=== PATIENT | male | born 1980 | race Two or more races ===

== ENCOUNTER 2020-01-29 09:44 | Emergency (ER) | payer OTHER ==
[~2020-01-29] VITALS: Ht 162.6 cm; Wt 127.0 kg
[2020-01-29 10:48] LABS: Basophils # (auto) 0.1 10 ^3/uL (0-0.2); Basophils % (auto) 0.8 % (0.0-2.0); Eosinophils # (auto) 0.1 10 ^3/uL (0-0.8); Eosinophils % (auto) 0.7 % (0.0-7.0); Hematocrit 48.7 % (41.0-53.0); Hemoglobin 16.3 g/dL (13.5-17.5); Lymphocytes # (auto) 1.7 10 ^3/uL (0.4-5.4); Lymphocytes % (auto) 20.1 % (10.0-50.0); Mean Corpuscular Hemoglobin 29.4 pg (28.0-32.0); Mean Corpuscular Hgb Conc. 33.5 g/dL (32.0-36.0); Mean Corpuscular Volume 87.9 fL (80.0-100.0); Monocytes # (auto) 0.7 10 ^3/uL (0-1.3); Monocytes % (auto) 8.5 % (0.0-12.0); Neutrophils % (auto) 69.9 % (37.0-80.0); Nucleated Red Blood Cells % 0.1 %; Platelet Count (auto) 314 10^3/uL (140-450); Red Blood Cells 5.54 10^6/uL (4.5-5.90); Red Cell Distribution Width 14.1 % (11.8-14.3); White Blood Cell 8.6 10^3/uL (4.4-10.8)
[2020-01-29 11:09] LABS: Potassium 3.8 mmol/L (3.5-5.1)
[2020-01-29 11:15] LABS: Albumin 3.9 g/dL (3.4-5.0); BUN/Creatinine Ratio 11.8; Bilirubin, Total 1.2 mg/dL (0.2-1.0); Total Protein 7.9 g/dL (6.4-8.2)
[2020-01-29 11:58] VITALS: BP 148/72
== END 2020-01-29 12:03 | disposition home or self-care (01) ==
LOC: ER 09:44
DX: K29.70 Gastritis, unspecified, without bleeding (principal); K80.20 Calculus of gallbladder without cholecystitis without obstruction
CPT/HCPCS: 36415; 74176; 80053; 83690; 85025

== ENCOUNTER 2025-01-13 10:00 | Emergency (ER) | payer SELFPAY ==
[~2025-01-13] VITALS: Ht 162.6 cm; Wt 133.2 kg
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
[2025-01-13] MEDS: LIDOCAINE 1% (LOCAL ANESTH.) PF 5ml SDV ID ONE (10:30)
[2025-01-13 10:55] VITALS: BP 149/86; PULSE 87; RESP 17; TEMP 97.7; O2SAT 99
[2025-01-13] MEDS: TETANUS-DIPTH-ACEL PERTUSSIS 0.5ML SYR Tdap IM ONE (11:19)
[2025-01-13] MEDS: BACITRACIN TOP OINT 1 UD PKG TOP ONE ×2 (11:27→11:28)
== END 2025-01-13 11:47 | disposition home or self-care (01) ==
LOC: ER 10:00
DX: S61.412A Laceration without foreign body of left hand, initial encounter (principal); F17.210 Nicotine dependence, cigarettes, uncomplicated; F12.90 Cannabis use, unspecified, uncomplicated; W26.9XXA Contact with unspecified sharp object(s), initial encounter; Y93.89 Activity, other specified; Y92.89 Other specified places as the place of occurrence of the external cause; Y99.0 Civilian activity done for income or pay
CPT/HCPCS: 12002; 90471; 90715